=== PATIENT | female | born 1985 | race Caucasian/White ===

== ENCOUNTER 2019-12-18 16:40 | Emergency (ER) | payer OTHER ==
[~2019-12-18] VITALS: Ht 154.9 cm; Wt 72.1 kg
[2019-12-18] MEDS ORDERED: MOBIC15 MG PO (18:10)
[2019-12-18] MEDS ORDERED: VISTARIL 25 MG25 M1 PO (18:10)
[2019-12-18] MEDS ORDERED: NORCO 5-325 TA1 EAC1 PO (18:10)
[2019-12-18 18:36] VITALS: BP 122/80
== END 2019-12-18 18:38 | disposition home or self-care (01) ==
LOC: M.ERS 16:40
DX: S92.212A Displaced fracture of cuboid bone of left foot, initial encounter for closed fracture (principal); J45.909 Unspecified asthma, uncomplicated; V29.49XA Motorcycle driver injured in collision with other motor vehicles in traffic accident, initial encounter; Y93.89 Activity, other specified; Y92.89 Other specified places as the place of occurrence of the external cause; Y99.8 Other external cause status

== ENCOUNTER → 2019-12-30 | Day surgery (SDC) | payer OTHER ==
[~2019-12-30] MED LIST: MOBIC15 MG PO; NORCO 5-325 TA1 EAC1 PO; VISTARIL 25 MG25 M1 PO
[2019-12-30 09:55] LABS: HEMATOCRIT 41.3 % (37.0-47.0)
--- NOTE | 2020-01-06 08:30 | OP ---
[address] [place] [address] OPERATIVE REPORT Name: DONG PARHAM Room: [facility]#: [id number] Admission: 12/30/19 Attend Phys: Richa Dooley DO Discharge: Date of : 89 Report #: [id number] THIS REPORT FOR: //name// cc: EDDIE Tirado family physician/PCP EDDIE Tirado family physician/PCP ~ THIS REPORT FOR: //name// CC: Richa MORGAN physician/PCP DATE OF SERVICE: 12/30/2019 Ashish Gao DO, dictating for Richa Dooley DO PREOPERATIVE DIAGNOSIS: Left ligamentous Lisfranc injury. POSTOPERATIVE DIAGNOSES: 1. Left ligamentous Lisfranc injury. 2. Left first tarsometatarsal joint instability. PROCEDURE PERFORMED: 1. Open reduction and internal fixation of left Lisfranc joint. 2. Open reduction and internal fixation of left first tarsometatarsal joint. 3. Intraoperative physician-guided fluoro, less than 1 hour. SURGEON: Richa Dooley DO PROBATION COUNSELOR: Ashish Gao DO ANESTHESIA: General with local. ESTIMATED BLOOD LOSS: 5 mL. SPECIMENS: None. COMPLICATIONS: None. DRAINS: None. ANTIBIOTICS: 2 grams Ancef IV piggyback prior to procedure. TOURNIQUET TIME: Approximately 35 minutes at 250 mmHg. ORTHOPEDIC IMPLANTS: Arthrex dorsal Lisfranc plate and screws. CONDITION OF THE PATIENT: Stable. [place] [address] OPERATIVE REPORT Name: DONG PARHAM Room: [facility].#: [id number] Admission: 12/30/19 Attend Phys: Richa Dooley DO Discharge: Date of : 89 Report #: [id number] DISPOSITION: PACU and then home. OPERATIVE FINDINGS: Upon performing the capsulectomy of the Lisfranc joint and the first TMT, the Lisfranc ligaments and dorsal first TMT ligament ruptures were noted with obvious instability at the first TMT joint and the Lisfranc joint. INDICATIONS FOR PROCEDURE: The patient is a pleasant 34-year-old female, who injured her left foot earlier last week and had continued pain despite rest and elevation and nonweightbearing. She has presented to the clinic where weightbearing x-rays were taken, demonstrating widening of the Lisfranc joint. Due to her history and x-ray findings, I discussed with the patient the likelihood of a ligamentous Lisfranc injury and different treatment options going forward as well as the surgery. She was informed of the risks, benefits, indications, and complications of surgery, including but not limited to infection, neurovascular injury, wound healing complications, need for antibiotics, implant prominence and implant removal, traumatic arthrosis, DVT, PE, complications with anesthesia and other possibilities. She demonstrated good understanding and wanted to proceed with surgery. Consent was signed prior to surgery. DESCRIPTION OF PROCEDURE: With the patient in the preoperative suite and the left foot was marked, the patient was then taken to the operating room and placed supine on well-padded table. The patient was given the benefit of general anesthesia and then the tourniquet was applied to the left upper thigh. The left lower extremity was then sterilely prepped and draped in standard fashion. At this point, a surgical timeout was taken indicating the correct patient, operative site, procedure performed and administration of antibiotics, and all in the room were in agreement, we elected to proceed. We used fluoroscopy to placido the dorsal incision over the foot over the Lisfranc joint. Next, the lower extremity was exsanguinated with an Esmarch and the tourniquet was insufflated to 250 mmHg. We began the incision with a 15 blade scalpel through the skin and subcutaneous tissue down to the level of the EHL tendon. The tendon sheath was incised along with its fibers and further dissection was taken down deep to the level of the periosteum and the capsule. At this point, the periosteum was elevated and a capsulotomy was performed. Care was taken to protect the EHL and EDL tendons as well as the neurovascular bundle throughout the entire procedure with retractors. Once the Lisfranc and first TMT joints were exposed, fluoroscopy was utilized to confirm proper reduction of these joints with a K-wire through the first TMT joint and using a [id number] clamp across the Lisfranc joint. With adequate reduction, the plate was positioned under multiplanar fluoroscopy and once it was found to be in adequate position, the medial cuneiform screw was then drilled and placed using cortical AO technique. Next, the second metatarsal base screw was positioned in the eccentric position to allow for some compression, [place] [address] OPERATIVE REPORT Name: DONG PARHAM Room: [facility].#: [id number] Admission: 12/30/19 Attend Phys: Richa Dooley, DO Discharge: Date of : 89 Report #: [id number] following two remaining screw holes at the first metatarsal base in the intermediate cuneiform was then drilled and placed in the standard technique. Multiplanar fluoroscopy confirmed adequate screw placement and alignment of the plate with good stability of the construct. At this point, the wound was thoroughly irrigated with saline. Closure consisted of 2-0 Vicryl in the subcutaneous tissue in an inverted simple fashion. The skin was run with 3-0 nylon. A local anesthetic was then administered. Dressings consisted of Xeroform, 4 x 4's, soft roll, posterior splint, and David wrap. Needle and sponge counts were correct x 2 at the end of the procedure. The tourniquet was let down. The patient tolerated the procedure well and was transferred to PACU in a stable condition. ATTESTATION: Dr. Dooley was present throughout the entirety of the case. Attending Note: Operative report reviewed. Agree with above. I attest that I was present throughout all pertinent decision making aspects of the case. <ELECTRONICALLY SIGNED> By: Richa Dooley DO 01/06/20 0830 [id number] [id number] Dooley DO /nt
== END | disposition home or self-care (01) ==
LOC: M.SUR 09:12
PROVIDERS: Orthopaedic Surgery
DX: S93.325A Dislocation of tarsometatarsal joint of left foot, initial encounter (principal); M25.375 Other instability, left foot; J45.909 Unspecified asthma, uncomplicated; Z98.890 Other specified postprocedural states; Z79.899 Other long term (current) drug therapy; Z11.59 Encounter for screening for other viral diseases; X58.XXXA Exposure to other specified factors, initial encounter; Y93.89 Activity, other specified; Y92.89 Other specified places as the place of occurrence of the external cause; Y99.8 Other external cause status

== ENCOUNTER → 2020-05-22 | Outpatient (CLI) | payer OTHER | LOC: M.LAB 08:36 | PROVIDERS: ATTEND Orthopaedic Surgery | DX: Z01.812 Encounter for preprocedural laboratory examination (principal); Z20.828 Contact with and (suspected) exposure to other viral communicable diseases ==

== ENCOUNTER → 2020-05-25 | Day surgery (SDC) | payer OTHER ==
[2020-05-25 06:46] LABS: HEMOGLOBIN 14.5 gm/dL (12.0-15.0)
--- NOTE | 2020-06-01 07:50 | OP ---
[address] [address] OPERATIVE REPORT Name: DONG PARHAM Room: [facility].#: [id number] Admission: 05/25/20 Attend Phys: Richa Dooley DO Discharge: Date of : 89 Report #: [id number] THIS REPORT FOR: //name// cc: EDDIE Tirado family physician/PCP EDDIE Tirado family physician/PCP ~ CC: Richa MORGAN physician/PCP DATE OF SERVICE: 05/25/2020 This is Katelynn Lomeli DO, dictating an operative report for Richa Dooley DO. PREOPERATIVE DIAGNOSIS: Left foot retained painful hardware. POSTOPERATIVE DIAGNOSIS: Left foot retained painful hardware. SURGEON: Richa Dooley DO CARD CLEANER: Katelynn Lomeli DO PROCEDURE PERFORMED: Left foot, removal of hardware. ANESTHESIA: General and local. ESTIMATED BLOOD LOSS: 5 mL. SPECIMENS REMOVED: Arthrex Lisfranc plate and 4 screws. TOURNIQUET: 23 minutes at 250 mmHg. ANTIBIOTICS: 2 g Ancef IV preoperatively. COMPLICATIONS: None. DRAINS: None. DISPOSITION: Stable to PACU and home. INDICATIONS FOR PROCEDURE: The patient is a 35-year-old female who suffered a Lisfranc injury in December of this year and underwent an ORIF on 12/29. She progressed well in her postoperative course and her injury healed uneventfully. Over the last month, the hardware has become painful. She presented to the outpatient clinic where a thorough discussion was had about hardware removal. The risks, benefits, complications, alternatives to the procedure were thoroughly discussed with the patient. She accepted the risks and wished to [address] [address] OPERATIVE REPORT Name: DONG PARHAM Room: [facility].#: [id number] Admission: 05/25/20 Attend Phys: Richa Dooley DO Discharge: Date of : 89 Report #: [id number] proceed. DESCRIPTION OF PROCEDURE: The patient was seen in the preoperative suite. The operative extremity was marked by the operative surgeon. Everyone in the preoperative suite was in agreement of correct side, site, patient, and procedure. The patient was then transported to the operative suite and placed supine on a well-padded operating table. The patient was given the benefit of general anesthesia and IV antibiotics were administered. A tourniquet was placed on the left upper thigh that was inflated for a total of 23 minutes at 250 mmHg. The left lower extremity was prepped and draped in the typical sterile fashion. A timeout was performed that once again confirmed correct side, site, patient, and procedure. Everyone in the operative suite was in agreement. The procedure began by utilizing an Esmarch to exsanguinate the left lower extremity and the tourniquet was inflated. We used a marking pen to placido out the prior incision. The procedure began by utilizing a scalpel through skin and subcutaneous tissue down to the level of the plate utilizing the prior incision. Hemostasis was achieved with electrocautery. Medial and lateral flaps were then developed with sharp dissection with a scalpel and a pickup, being careful to protect the neurovascular structures at all times. Once adequate visualization of the plate was achieved, the screw holes were debrided of soft tissue with a rongeur and scalpel. The four screws were then removed with the appropriately sized screwdriver. Soft tissue was then sharply dissected off of the plate then the plate was removed with a [place]. Metalosis was removed carefully with a rongeur, once again being careful to protect all neurovascular structures. At this time, all 4 screws and the plate had been removed. C-arm was utilized to confirm removal of all hardware and the image was saved and printed. The incision was thoroughly irrigated with normal saline. The incision was closed with 2-0 Vicryl subcutaneously in interrupted fashion and skin was closed with a running 3-0 nylon suture. The skin was then cleaned with a wet-to-dry dressing. The tourniquet was deflated once again for a total of 23 minutes at 250 mmHg. The incision was dressed with Xeroform, 4 x 4s, Kerlix, and David wrap. The patient was then awoken from general anesthesia and transported to PACU in stable condition. Counts were correct x 2. I attest that Dr. Richa Dooley, , was present through all critical aspects of this procedure. POSTOPERATIVE CARE: Once the patient is tolerating p.o., pain control with p.o. medications, and medically stable, she will be discharged home. She will be weightbear as tolerated to her left lower extremity in a postop shoe. She will maintain her dressing clean, dry, and intact for 3 days. After that time, she may remove the dressing in place, a large Band-Aid over the incision. She is to place a waterproof Band-Aids over her incision while showering and then replace them with normal Band-Aids after showering. She will take analgesics as [facility] [address] [place] [address] OPERATIVE REPORT Name: DONG PARHAM Room: [facility].#: [id number] Admission: 05/25/20 Attend Phys: Richa Dooley DO Discharge: Date of : 89 Report #: [id number] prescribed. She has enough pain medications at home and was not prescribed a new prescription today. We encouraged her to call with any questions or concerns. ATTESTATION: Operative report reviewed. Agree with above. I attest I was present through all pertinent decision making aspects of the case. <ELECTRONICALLY SIGNED> By: Richa Dooley DO 06/01/20 0750 [id number] Dooley DO /justo
== END | disposition home or self-care (01) ==
LOC: M.SUR
PROVIDERS: ATTEND Orthopaedic Surgery
DX: Z47.89 Encounter for other orthopedic aftercare (principal); M79.672 Pain in left foot; Z79.899 Other long term (current) drug therapy; Z88.8 Allergy status to other drugs, medicaments and biological substances